=== PATIENT | female | born 1980 | race Caucasian/White ===

== ENCOUNTER 2023-07-12 19:59 | Emergency (ER) | payer OTHER, SELFPAY ==
--- NOTE | 2023-07-12 | ECG_ITS ---
Test Reason : DIFF BREATHING Blood Pressure : / mmHG Vent. Rate : 092 BPM Atrial Rate : 092 BPM P-R Int : 162 ms QRS Dur : 084 ms QT Int : 354 ms P-R-T Axes : 057 084 050 degrees QTc Int : 437 ms Normal sinus rhythm RSR' or QR pattern in V1 suggests right ventricular conduction delay Nonspecific ST and T wave abnormality Abnormal ECG No previous ECGs available Referred By: Generic ED Physician Electronically Signed By:IVAN ALVAREZ MD
--- NOTE | ~2023-07-12 | XR_ITS ---
EXAMINATION: XR CHEST CLINICAL INFORMATION: Shortness of breath. COMPARISON: None available. TECHNIQUE: Frontal view of the chest was obtained. FINDINGS: There is some limitation related to technique and body habitus. The cardiomediastinal silhouette is within normal limits. There appears to be mild perihilar increased markings. There is no definitive focal consolidation or evidence for significant pleural effusion. The bony structures and soft tissues are unremarkable. XR/XR chest 1V IMPRESSION: There is some limitation related to technique and body habitus. Bilateral perihilar increased markings of uncertain significance. Consider change related to bronchitis. There is no focal lung consolidation or pleural effusion.
[2023-07-12 20:50] VITALS: BP 155/80; PULSE 88; RESP 20; TEMP 36.7; O2SAT 97; BMI 48.7
[2023-07-12 20:56] VITALS: BP 156/83; PULSE 87; RESP 21; RESP 25; O2SAT 97
--- NOTE | 2023-07-12 21:11 | ED_ITS ---
HPI - SOB/Dyspnea General Chief Complaint: Dyspnea Stated Complaint: difficulty breathing Time Seen by Provider: 07/12/23 21:02 Source: patient Mode of arrival: ambulatory Limitations: no limitations History of Present Illness HPI Narrative: Patient history of asthma was healthy until she had COVID in 10/23 had last asthma attack was in 2019 patient was on vacation at [employer] earlier this week possible mold in the house, came back in for last 4 days been coughing with wheezing feels phlegm in her lungs was not able to expectorate had some running nose and low-grade fever body aches check for the COVID at home which was negative x2 no other family member sick Related Data Previous Rx's Medication Instructions Recorded albuterol sulfate 2.5 mg/3 mL 2.5 mg (3 mL) inhalation Q4-6H PRN 07/12/23 (0.083 %) solution for nebulization shortness of breath or wheezing #90 mL albuterol sulfate 90 mcg/actuation 2 puff inhalation Q4-6H PRN 07/12/23 aerosol inhaler (ProAir HFA) shortness of breath or wheezing #8.5 grams amoxicillin 875 mg-potassium 1 tab PO BID #20 tabs 07/12/23 clavulanate 125 mg tablet benzonatate 200 mg capsule 200 mg PO TID PRN cough #30 caps 07/12/23 Allergies Allergy/AdvReac Type Severity Reaction Status Date / Time cefaclor [From Ceclor] AdvReac Muscle Pain Verified 07/12/23 20:54 codeine AdvReac Hives Verified 07/12/23 20:54 Review of Systems 2 Review of Systems: Yes all other systems are reviewed and are negative [facility] Social History Social History Advance Directives: No Advance Directives Information Provided: Yes Physical Exam 2 Vital Signs: Vital Signs: Last Vital Signs Temp 98.0 F 07/12/23 20:50 Pulse 84 07/12/23 21:38 Resp 16 07/12/23 21:38 BP 156/83 H 07/12/23 20:56 Pulse Ox 97 07/12/23 20:56 O2 Del Method Room Air 07/12/23 20:56 BMI result Body Mass Index 48.7 Appearance: Alert. Oriented X3. No acute distress. Eyes: No pallor or icterus ENT: Pharynx normal. Oral Mucosa moist Neck: Normal inspection. Neck supple. CVS: Normal heart rate and rhythm. Pulses normal. Respiratory: No respiratory distress. Equal air entry bilateral, bilateral WHEEZING no rales Skin: Skin warm and dry. Normal skin color. Normal skin turgor. Extremities: No lower extremity edema. No calf tenderness Neuro: Oriented X 3. No motor deficit. Medications Administered Discontinued Medications Generic Name Dose Route Start Last Admin Trade Name Freq PRN Reason Stop Dose Admin Amoxicillin/Clavulanate Potassium 875 mg 07/12/23 21:32 07/12/23 21:58 Amoxicillin/Potassium Clav 875 Mg Tablet PO 07/12/23 21:33 875 mg ONCE ONE Administration Benzonatate 200 mg 07/12/23 21:19 07/12/23 21:27 Benzonatate 100 Mg Capsule PO 07/12/23 21:20 Not Given ONCE ONE Albuterol Sulfate 2.5 mg/ 0 mg 07/12/23 21:18 07/12/23 21:36 Albuterol/Ipratropium 3 ml INHALE 07/12/23 21:19 1 dose ONCE ONE Administration Medical Decision Making Medical Decision Making [facility] Narrative: Patient with asthma with increased cough include bronchitis already on prednisone chest x-ray negative for pneumonia will discharge patient home on Augmentin and cough drops Differential Diagnosis Differential Diagnoses: The differential diagnosis associated with the presentation includes Asthma exacerbation/bronchitis/pneumonia/atypical pneumonia/COVID/influenza Lab Data [facility] Lab Attestation statement: I reviewed the patient's lab results. 07/12/23 21:07 07/12/23 21:07 Labs: Lab Results 07/12/23 07/12/23 Range/Units 21:07 21:19 WBC 11.8 H (4.8-10.8) X10*3/uL RBC 4.13 L (4.20-5.50) X10*6/uL Hgb 12.7 (12.0-16.0) g/dl Hct 37.8 (37.0-47.0) % MCV 91.5 (80.0-98.0) fL MCH 30.8 (27.0-33.0) pg MCHC 33.6 (31.0-35.0) g/dl RDW 13.2 (11.0-16.0) % Plt Count 217 (160-400) X10*3/uL MPV 11.6 (9.4-12.3) fL Immature Gran % (Auto) 0.3 (0.0-0.4) % Neut % (Auto) 84.9 H (45-73) % Lymph % (Auto) 9.0 L (20-40) % [place] % (Auto) 4.6 (2-11) % Eos % (Auto) 0.9 (0-4) % Baso % (Auto) 0.3 (0-2) % Lymph # (Auto) 1.1 L (1.2-4.9) X10*3/uL [place] # (Auto) 0.5 (0.1-1.2) X10*3/uL Eos # (Auto) 0.1 (0.0-0.4) X10*3/uL Baso # (Auto) 0.0 (0.0-0.2) X10*3/uL Abs Immat Gran (auto) 0.04 H (0.00-0.03) X10*3/uL Absolute Neuts (auto) 10.0 H (2.0-8.3) x10*3/uL Absolute Nucleated RBC 0.000 (0.0-0.012) X10*3/uL Nucleated RBC % (auto) 0.0 (0.0-0.2) /100WBC Sodium 140 (135-145) mmol/L Potassium 3.5 (3.3-5.1) mmol/L Chloride 103 (96-108) mmol/L Carbon Dioxide 23 (22-29) mmol/L Anion Gap 18 (12-20) BUN 9 (9-16) mg/dL Creatinine 0.67 (0.5-1.4) mg/dL Estim Creat Clear Calc 140.4 Estimated GFR > 60 Random Glucose 124 H (60-115) mg/dL Calcium 9.0 (8.4-10.2) mg/dL Total Bilirubin 0.2 (0.0-1.0) mg/dL Direct Bilirubin < 0.2 (0.0-0.5) mg/dL AST 16 (5-31) U/L ALT 17 (0-31) U/L Alkaline Phosphatase 84 (39-117) U/L Total Protein 7.9 (6.5-8.0) g/dL Albumin 3.6 (3.5-5.0) g/dL COVID-19 (DELMY) Negative (Negative) COVID-19 Clin Com See Note Influenza Type A (HINA) Negative (Negative) Influenza Type B (HINA) Negative (Negative) Influenza A & B Note See Note Independent Interpretation I performed an independent interpretation of an: EKG Interpretation: Normal sinus rhythm heart rate 92 beats per minute normal interval normal axis nonspecific ST T wave changes no acute ischemia Discharge Plan Discharge Clinical Impression: Asthmatic bronchitis Patient Disposition: Home, Self-Care Instructions: Acute Bronchitis (ED) Additional Instructions: Continue to your prednisone use nebulizing treatment every 4-6 hours Antibiotic as prescribed Follow p with your lung specialist/PCP if not better Prescriptions: New albuterol sulfate 2.5 mg /3 mL (0.083 %) solution for nebulization 2.5 mg inhalation Q4-6H PRN (Reason: shortness of breath or wheezing) Qty: 90 0RF albuterol sulfate [ProAir HFA] 90 mcg/actuation HFA aerosol inhaler 2 puff inhalation Q4-6H PRN (Reason: shortness of breath or wheezing) Qty: 8.5 0RF amoxicillin-pot clavulanate 875-125 mg tablet 1 tab PO BID Qty: 20 0RF benzonatate 200 mg capsule 200 mg PO TID PRN (Reason: cough) Qty: 30 0RF
[2023-07-12 21:15] LABS: MANUAL DIFF FLAG NO
[2023-07-12 21:21] LABS: Basophils Percent Auto 0.3 % (0-2); Eosinophils Absolute Auto 0.1 X10*3/uL (0.0-0.4); Eosinophils Percent Auto 0.9 % (0-4); Hematocrit 37.8 % (37.0-47.0); Hemoglobin 12.7 g/dl (12.0-16.0); Imm Gran Abs Auto 0.04 X10*3/uL (0.00-0.03); Imm Gran Pct Auto 0.3 % (0.0-0.4); Lymphocytes Absolute Auto 1.1 X10*3/uL (1.2-4.9); Mean Corpuscular HGB Conc 33.6 g/dl (31.0-35.0); Mean Corpuscular Hemoglobin 30.8 pg (27.0-33.0); Mean Corpuscular Volume 91.5 fL (80.0-98.0); Mean Platelet Volume 11.6 fL (9.4-12.3); Monocytes Absolute Auto 0.5 X10*3/uL (0.1-1.2); Monocytes Percent Auto 4.6 % (2-11); Neutrophils Percent Auto 84.9 % (45-73); Platelet Count 217 X10*3/uL (160-400); Red Blood Count 4.13 X10*6/uL (4.20-5.50); Red Cell Distribution Width 13.2 % (11.0-16.0); White Blood Count 11.8 X10*3/uL (4.8-10.8)
[2023-07-12 21:29] LABS: Alanine Aminotransferase 17 U/L (0-31); Albumin Level 3.6 g/dL (3.5-5.0); Alkaline Phosphatase 84 U/L (39-117); Anion Gap 18 (12-20); Aspartate Amino Transferase 16 U/L (5-31); Bilirubin Direct < 0.2 mg/dL (0.0-0.5); Bilirubin Total 0.2 mg/dL (0.0-1.0); Blood Urea Nitrogen 9 mg/dL (9-16); Carbon Dioxide 23 mmol/L (22-29); Chloride 103 mmol/L (96-108); Creatinine Clr Calc Pharmacy 140.4; Estimated Glomerular Filt Rate > 60; Glucose Random 124 mg/dL (60-115); Potassium 3.5 mmol/L (3.3-5.1); Sodium 140 mmol/L (135-145); Total Protein 7.9 g/dL (6.5-8.0)
[2023-07-12] MEDS: Albuterol Sulfate 2.5 MG, Albuterol/Iprat 2.5/0.5MG 3 ML 3 ML INHALE (21:36)
[2023-07-12 21:38] VITALS: PULSE 84; RESP 16; O2SAT 94
[2023-07-12 21:39] LABS: COVID-19 Test Negative (Negative); IDNOW Serial# 08D9AD1C; IDNOW Serial# BCCEAD1C; Influenza A Negative (Negative); Influenza B2 Negative (Negative)
[2023-07-12] MEDS: Amoxicillin/Potassium Clav 875 MG TABLET PO (21:58)
[2023-07-12 23:00] VITALS: BP 146/87; PULSE 88; RESP 17; O2SAT 95
== END 2023-07-12 23:01 | disposition home or self-care (01) ==
PROVIDERS: Emergency Provider Internal Medicine; PCP Student in an Organized Health Care Education/Training Program
DX: J45.909 Unspecified asthma, uncomplicated (principal); R06.00 Dyspnea, unspecified; Z11.52 Encounter for screening for COVID-19
CPT/HCPCS: 36415; 71045; 80048; 80076; 85025; 87502; 87635; 93005; 94640; 99284; 99285

== ENCOUNTER 2023-07-14 10:08 | Emergency (ER) | payer OTHER, SELFPAY ==
--- NOTE | ~2023-07-14 | CT_ITS ---
EXAMINATION: CT ABDOMEN AND PELVIS WITHOUT CONTRAST CLINICAL INFORMATION: Vomiting, abdominal pain, rule out obstruction COMPARISON: None available. TECHNIQUE: Multidetector volumetric imaging was performed from the superior aspect of the liver through the pubic symphysis. Sagittal and coronal reformatted images were obtained on the technologist's workstation. This CT examination was performed using dose optimization techniques as appropriate, variously including the following: *Automated exposure control *Adjustment of mA and/or kV according to patient size (this includes techniques or standardized protocols for targeted exams where dose is matched to indication/reason for exam; i.e. extremities or head) *Use of iterative reconstruction technique DLP: 1114 mGy-cm FINDINGS: LUNG BASES: The visualized lung bases are unremarkable. LIVER, GALLBLADDER, AND BILIARY TREE: The liver is normal in size, shape, and attenuation. No focal hepatic lesion or biliary ductal dilatation is present. Gallbladder is surgically absent. PANCREAS: Unremarkable. SPLEEN: Spleen is enlarged measured 16.3 cm. There are small splenules present surrounding spleen. ADRENAL GLANDS: Unremarkable. KIDNEYS AND URETERS: The kidneys are normal in size, shape, and attenuation. No hydronephrosis, hydroureter, or calculi seen. No perinephric stranding. BLADDER: Unremarkable. There are changes of sigmoid colon diverticulosis but no evidence of diverticulitis. GASTROINTESTINAL TRACT: The small and large bowel are unremarkable. The appendix is unremarkable. ABDOMINAL WALL: There is moderate size fat-containing umbilical hernia LYMPH NODES: Normal. VASCULAR: Unremarkable. PELVIC VISCERA: Uterus is surgically absent. OSSEOUS STRUCTURES: There are degenerative changes with grade 1 anterior listhesis at the level of L5-S1 with bilateral pars CT/CT abdomen pelvis wo IV con IMPRESSION: 1. Splenomegaly. 2. Status post cholecystectomy and hysterectomy. 3. No evidence of bowel obstruction. 4. Diverticulosis without diverticulitis. 5. Fat-containing umbilical hernia. 6. Grade 1 anterolisthesis at the level of L5-S1 with bilateral pars interarticularis defects. Fleischner guidelines were followed.
[2023-07-14 10:44] VITALS: BP 171/79; PULSE 71; RESP 19; TEMP 36.6; O2SAT 95; BMI 54.4
[2023-07-14] MEDS: Ondansetron ODT 4 MG TAB.RAPDIS TRANSLINGU (10:55)
--- NOTE | 2023-07-14 11:29 | ED.GENADULT ---
HPI - General Adult General Chief complaint: General Medical Stated complaint: vomiting feels like passing out Time Seen by Provider: 07/14/23 11:28 Source: patient Mode of arrival: ambulatory Limitations: no limitations History of Present Illness HPI narrative: 42-year-old female came in for evaluation of nausea, vomiting. Patient was seen last week twice for acute bronchitis and was started on Augmentin and prednisone woke up this morning feeling nauseous, upper abdominal cramps, and nonstop vomiting since the morning, no fever, no chills. Normal bowel movement last bowel movement was yesterday, no dysuria, no frequency urination, no hematuria, passing gas. No history of alcohol abuse, history of cholecystectomy and hysterectomy. Related Data Previous Rx's Medication Instructions Recorded albuterol sulfate 2.5 mg/3 mL 2.5 mg (3 mL) inhalation Q4-6H PRN 07/12/23 (0.083 %) solution for nebulization shortness of breath or wheezing #90 mL albuterol sulfate 90 mcg/actuation 2 puff inhalation Q4-6H PRN 07/12/23 aerosol inhaler (ProAir HFA) shortness of breath or wheezing #8.5 grams amoxicillin 875 mg-potassium 1 tab PO BID #20 tabs 07/12/23 clavulanate 125 mg tablet benzonatate 200 mg capsule 200 mg PO TID PRN cough #30 caps 07/12/23 ondansetron 4 mg disintegrating 4 mg PO Q6-8H PRN nausea and 07/14/23 tablet vomiting #7 tabs Allergies Allergy/AdvReac Type Severity Reaction Status Date / Time [facility]lor [facility] AdvReac Muscle Pain Verified 07/12/23 20:54 codeine AdvReac Hives Verified 07/12/23 20:54 Review of Systems Review of Systems: All other systems are reviewed and are negative Constitutional: Reports as per HPI and Reports no additional constitutional complaints Eyes: Reports as per HPI and Reports no additional eye complaints Reports system reviewed and no additional complaints, except as documented Cardiovascular: Reports as per HPI and Reports no additional cardiovascular complaints Respiratory: Reports as per HPI and Reports no additional respiratory complaints Gastrointestinal: Reports as per HPI and Reports no additional gastrointestinal complaints Genitourinary: Reports no additional female genitourinary complaints Musculoskeletal: Reports no additional musculoskeletal complaints Skin/Breast: Reports system reviewed and no additional complaints, except as docu Psychiatric: Reports no additional psychiatric complaints Endocrine: Reports no additional endocrine complaints Hematologic/Lymphatic: Reports no additional hematologic/lymphatic complaints Allergic/Immunologic: Reports no additional allergic/immunologic complaints Reports system reviewed and no additional complaints, except as documented and Reports Abnormal speech present [facility] Social History Social History Advance Directives: No Advance Directives Information Provided: No Patient : No Physical Exam ED Vital Signs: Vital Signs - 24 hr 07/14/23 10:44 07/14/23 13:19 Temperature 97.8 F 98.1 F Pulse Rate 71 68 Respiratory Rate 19 19 Blood Pressure 171/79 H 146/86 H Pulse Oximetry 95 91 L Oxygen Delivery Method Room Air Room Air BMI result Body Mass Index 54.4 Vital signs have been reviewed and appear to be correct. Blood pressure elevated. Heart rate normal. Respiratory rate normal. Temperature normal. Oxygen saturation normal. Appearance: Alert. Oriented X3. No acute distress. Head: Normal external exam. Normocephalic. Atraumatic. No [place] signs noted. No raccoon eyes noted Eyes: PERRLA. EOMI. Conjunctiva and sclera normal. Eyelids normal. ENT: TM's Normal. Pharynx normal. Uvula midline. Moist mucous membranes. No trismus noted. No drooling noted. No muffled voice noted. Neck: Normal inspection. Neck supple. FROM. No adenopathy. Thyroid Normal. No meningeal signs. No neck mass noted. CVS: Normal heart rate and rhythm. Heart sound normal. No murmurs noted. Pulses normal throughout. Respiratory: No respiratory distress. Painless inspiration. Breath sounds normal. No wheezes/rales/rhonchi noted. Chest nontender. No accessory muscle usage noted or decreased air movement noted. Abdomen: Soft , Mild epigastric tenderness with no rebound tenderness or guarding. Bowel sounds normal in all 4 quadrants. No distention noted. No organomegaly noted. No visible injury noted. Back: No CVA tenderness. Full range of motion noted. Skin: Skin warm and dry. Normal skin color. Normal skin turgor. No rashes/lesions/lacerations noted. Extremities: No lower extremity edema. Extremities exhibit normal range of motion. Extremities nontender. Neuro: Oriented X 3. Cranial nerve exam: II-XII are grossly intact No motor deficit. No sensory deficit. Reflexes normal. Course Reevaluation(s) Reevaluation #1: CT abdomen pelvis is showing no acute intra-abdominal pathology, labs are unremarkable, able to tolerate p.o. intake in the emergency department. will discharge with Zofran. Time: 14:39 Medications Administered Discontinued Medications Generic Name Dose Route Start Last Admin Trade Name Freq PRN Reason Stop Dose Admin Famotidine 20 mg 07/14/23 11:36 07/14/23 11:48 Famotidine/Pf 20 Mg/2 Ml Vial IVPUSH 07/14/23 11:37 20 mg ONCE ONE Administration Sodium Chloride 1,000 mls @ 999 mls/hr 07/14/23 11:36 07/14/23 14:36 Ns IV 07/14/23 12:36 Infused .Q1H1M ONE Infusion Metoclopramide HCl 10 mg 07/14/23 13:30 07/14/23 13:58 Metoclopramide Hcl 10 Mg/2 Ml Vial IVPUSH 07/14/23 13:31 10 mg ONCE ONE Administration Morphine Sulfate 2 mg 07/14/23 12:49 07/14/23 12:55 Morphine Sulfate 2 Mg/Ml Cartridge IVPUSH 07/14/23 12:50 2 mg ONCE ONE Administration Protocol Ondansetron HCl 4 mg 07/14/23 10:53 07/14/23 10:55 Ondansetron Odt 4 Mg Tab.Rapdis TRANSLINGU 07/14/23 10:54 4 mg ONCE ONE Administration Ondansetron HCl 4 mg 07/14/23 11:36 07/14/23 11:46 Ondansetron Hcl 4 Mg/2 Ml Vial IVPUSH 07/14/23 11:37 4 mg ONCE ONE Administration Medical Decision Making Differential Diagnosis Differential Diagnoses: The differential diagnosis associated with the presentation includes ( Appendicitis, colitis, diverticulitis, gastritis, UTI, , severe anemia, electrolyte abnormality, dehydration.) Admission/Observation Consideration of admission/observation: Escalation of care including admission/observation considered Lab Data MDM Lab Attestation statement: I reviewed the patient's lab results. 07/14/23 11:31 07/14/23 11:30 Labs: Lab Results 07/14/23 07/14/23 Range/Units 11:30 11:31 WBC 11.2 H (4.8-10.8) X10*3/uL RBC 4.17 L (4.20-5.50) X10*6/uL Hgb 12.7 (12.0-16.0) g/dl Hct 37.3 (37.0-47.0) % MCV 89.4 (80.0-98.0) fL MCH 30.5 (27.0-33.0) pg MCHC 34.0 (31.0-35.0) g/dl RDW 13.2 (11.0-16.0) % Plt Count 253 (160-400) X10*3/uL MPV 11.2 (9.4-12.3) fL Immature Gran % (Auto) 0.5 H (0.0-0.4) % Neut % (Auto) 81.7 H (45-73) % Lymph % (Auto) 11.0 L (20-40) % [place] % (Auto) 5.8 (2-11) % Eos % (Auto) 0.8 (0-4) % Baso % (Auto) 0.2 (0-2) % Lymph # (Auto) 1.2 (1.2-4.9) X10*3/uL [place] # (Auto) 0.7 (0.1-1.2) X10*3/uL Eos # (Auto) 0.1 (0.0-0.4) X10*3/uL Baso # (Auto) 0.0 (0.0-0.2) X10*3/uL Abs Immat Gran (auto) 0.06 H (0.00-0.03) X10*3/uL Absolute Neuts (auto) 9.1 H (2.0-8.3) x10*3/uL Absolute Nucleated RBC 0.000 (0.0-0.012) X10*3/uL Nucleated RBC % (auto) 0.0 (0.0-0.2) /100WBC Sodium 138 (135-145) mmol/L Potassium 3.7 (3.3-5.1) mmol/L Chloride 101 (96-108) mmol/L Carbon Dioxide 25 (22-29) mmol/L Anion Gap 16 (12-20) BUN 7 L (9-16) mg/dL Creatinine 0.64 (0.5-1.4) mg/dL Estim Creat Clear Calc 157.6 Estimated GFR > 60 Random Glucose 106 (60-115) mg/dL Calcium 9.2 (8.4-10.2) mg/dL Total Bilirubin 0.4 (0.0-1.0) mg/dL AST 12 (5-31) U/L ALT 17 (0-31) U/L Alkaline Phosphatase 86 (39-117) U/L Total Protein 7.9 (6.5-8.0) g/dL Albumin 3.6 (3.5-5.0) g/dL Lipase 8 (8-78) U/L Urine Color Yellow Urine Appearance Clear Urine pH 7.5 (5.0-9.0) Ur Specific [place] 1.020 (1.005-1.025) Urine Protein Negative (Neg-Trace) mg/dL Urine Glucose (UA) Negative (Negative) mg/dL Urine Ketones Trace (Negative) mg/dL Urine Blood Negative (Negative) Urine Nitrite Negative (Negative) Ur Leukocyte Esterase Negative (Negative) Urine Test NEGATIVE (NEGATIVE) Independent Interpretation I performed an independent interpretation of an: CT Scan ( Abdomen pelvis:1. Splenomegaly. 2. Status post cholecystectomy and hysterectomy. 3. No evidence of bowel obstruction. 4. Diverticulosis without diverticulitis. 5. Fat-containing umbilical hernia. 6. Grade 1 anterolisthesis at the level of L5-S1 with bilateral pars i) Radiology Impression Discussion of test interpretation with radiology: I have reviewed the radiologist's reading. Discharge Plan Discharge Clinical Impression: Gastritis Qualifiers: Gastritis type: unspecified gastritis Chronicity: acute Gastritis bleeding: without bleeding Qualified Code(s): K29.00 - Acute gastritis without bleeding Vomiting Qualifiers: Vomiting type: unspecified Nausea presence: with nausea Qualified Code(s): R11.2 - Nausea with vomiting, unspecified Patient Disposition: Home, Self-Care Instructions: Acute Nausea and Vomiting (ED) Prescriptions: New ondansetron 4 mg tablet,disintegrating 4 mg PO Q6-8H PRN (Reason: nausea and vomiting) Qty: 7 0RF No Action albuterol sulfate 2.5 mg /3 mL (0.083 %) solution for nebulization 2.5 mg inhalation Q4-6H PRN (Reason: shortness of breath or wheezing) Qty: 90 0RF albuterol sulfate [ProAir HFA] 90 mcg/actuation HFA aerosol inhaler 2 puff inhalation Q4-6H PRN (Reason: shortness of breath or wheezing) Qty: 8.5 0RF amoxicillin-pot clavulanate 875-125 mg tablet 1 tab PO BID Qty: 20 0RF benzonatate 200 mg capsule 200 mg PO TID PRN (Reason: cough) Qty: 30 0RF Referrals: Marissa Fisher MD [Primary Care Provider] -
[2023-07-14 11:37] LABS: MANUAL DIFF FLAG NO
[2023-07-14 11:39] LABS: Basophils Percent Auto 0.2 % (0-2); Eosinophils Absolute Auto 0.1 X10*3/uL (0.0-0.4); Eosinophils Percent Auto 0.8 % (0-4); Hematocrit 37.3 % (37.0-47.0); Hemoglobin 12.7 g/dl (12.0-16.0); Imm Gran Abs Auto 0.06 X10*3/uL (0.00-0.03); Imm Gran Pct Auto 0.5 % (0.0-0.4); Lymphocytes Absolute Auto 1.2 X10*3/uL (1.2-4.9); Mean Corpuscular Hemoglobin 30.5 pg (27.0-33.0); Mean Corpuscular Volume 89.4 fL (80.0-98.0); Mean Platelet Volume 11.2 fL (9.4-12.3); Monocytes Absolute Auto 0.7 X10*3/uL (0.1-1.2); Monocytes Percent Auto 5.8 % (2-11); Neutrophils Absolute Auto 9.1 x10*3/uL (2.0-8.3); Neutrophils Percent Auto 81.7 % (45-73); Platelet Count 253 X10*3/uL (160-400); Red Blood Count 4.17 X10*6/uL (4.20-5.50); Red Cell Distribution Width 13.2 % (11.0-16.0); White Blood Count 11.2 X10*3/uL (4.8-10.8)
[2023-07-14 11:40] LABS: Appearance Urine Clear; Color Urine Yellow; Glucose Urine UA Negative (Negative); Leukocyte Esterase Urine Negative (Negative); Nitrite Urine Negative (Negative); PH 7.5 (5.0-9.0); Urine Blood Negative (Negative); Urine Ketones Trace mg/dL (Negative); Urine Protein Negative (Neg-Trace)
[2023-07-14] MEDS: 0.9 % Sodium Chloride 1,000 ML 999 ML IV (11:43)
[2023-07-14] MEDS: ondansetron HCL 4 MG/2 ML VIAL IVPUSH (11:46)
[2023-07-14 11:48] LABS: UPreg QC Valid YES; Urine Pregnancy NEGATIVE (NEGATIVE)
[2023-07-14] MEDS: Famotidine/PF 20 MG/2 ML VIAL IVPUSH (11:48)
[2023-07-14 11:53] LABS: Alanine Aminotransferase 17 U/L (0-31); Albumin Level 3.6 g/dL (3.5-5.0); Alkaline Phosphatase 86 U/L (39-117); Anion Gap 16 (12-20); Aspartate Amino Transferase 12 U/L (5-31); Bilirubin Total 0.4 mg/dL (0.0-1.0); Blood Urea Nitrogen 7 mg/dL (9-16); Calcium 9.2 mg/dL (8.4-10.2); Carbon Dioxide 25 mmol/L (22-29); Chloride 101 mmol/L (96-108); Creatinine Clr Calc Pharmacy 157.6; Estimated Glomerular Filt Rate > 60; Glucose Random 106 mg/dL (60-115); Potassium 3.7 mmol/L (3.3-5.1); Sodium 138 mmol/L (135-145); Total Protein 7.9 g/dL (6.5-8.0)
[2023-07-14 12:03] LABS: Lipase 8 U/L (8-78)
[2023-07-14] MEDS: Morphine Sulfate 2 MG/ML CARTRIDGE IVPUSH (12:55)
[2023-07-14 13:19] VITALS: BP 146/86; PULSE 68; RESP 19; TEMP 36.7; O2SAT 91
[2023-07-14] MEDS: Metoclopramide HCl 10 MG/2 ML VIAL IVPUSH (13:58)
== END 2023-07-14 15:45 | disposition home or self-care (01) ==
PROVIDERS: Emergency Provider Emergency Medicine; PCP Student in an Organized Health Care Education/Training Program
DX: K29.00 Acute gastritis without bleeding (principal); R11.2 Nausea with vomiting, unspecified; R10.10 Upper abdominal pain, unspecified; R16.1 Splenomegaly, not elsewhere classified; K57.90 Diverticulosis of intestine, part unspecified, without perforation or abscess without bleeding
CPT/HCPCS: 36415; 74176; 80053; 81003; 81025; 83690; 85025; 96361; 96374; 96375; 99284; J2270; J2405; J2765